=== PATIENT | male | born 1990 | race Caucasian/White ===

== ENCOUNTER 2018-09-25 15:41 | Emergency (ER) | payer OTHER, SELFPAY ==
[2018-09-25 15:49] VITALS: BP 156/83; PULSE 96; RESP 20; TEMP 36.8; O2SAT 98
--- NOTE | 2018-09-25 16:38 | W.ED.GENAD ---
Discharge Plan Disposition Patient Disposition: HOME Condition: Fair Discharge Details Chief Complaint: RashLesion Clinical Impression: Poison jessica dermatitis, Allergic reaction Primary Care Provider: Andrew Robb ED Provider: Nona Melara Home Meds and New Rx's Prescriptions: New prednisone 10 mg tablet 10 mg PO DAILY Qty: 37 RF: 0 tramadol 50 mg tablet 50 mg PO Q6H PRN (Reason: pain) Qty: 7 RF: 0 Discharge Instructions Instructions: Poison Jessica (ED), General Allergic Reaction (ED) Additional Instructions: Please keep areas clean and dry. You may address these as advised by nursing staff with a thick cream followed by wrapping, particularly when in shoes. Please take the prednisone as prescribed. Monitor wound for signs of infection including redness, warmth, drainage, increased pain, fever/chills. If these or other new/worsening symptoms arise please seek care urgently once again. Tylenol and ibuprofen as needed for discomfort. You may augment this with the tramadol as prescribed if this is insufficient. Please not drive while taking this medication. Follow-up with primary care next week for reevaluation Referrals: Andrew Robb [Primary Care Provider] - Discharge Data Discharge Date/Time-TO BE ENTERED AT DEPARTURE: 09/25/18 17:03 Medical Decision Making Patient is a 28-year-old male presents today with concern for blisters on bilateral feet. 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 Is followed by 3d specialist at [facility]. Reports that 2 weeks ago, he went to a wedding and wore shoes that he later determined to be a neoprene base without any socks. Since that time he has had progressively worsening symptoms that have resulted in circumferential rash around his feet that has since blistered. Patient also notes that he was exposed to poison jessica and has a rash to his arms, torso and legs. It does spare the genitals and face. No wheezing noted on exam. No signs of infection. Patient is ambulating with an antalgic gait secondary to the blistering on his feet. Skin on patient's feet has raw with sloughed off layer of skin consistent with the coming off of the blister she was describing. Plan to treat with prednisone. He has been on this for same historically with good result. Will give tramadol to help with nighttime discomfort. Patient I discussed wound care. These were addressed by nursing staff he is continues a sliding in and out of shoes. Does not appear infected at this point, he was given strict return precautions. He will f/u with PCP in one week. All of his questions and concerns were addressed, they are in agreement with this plan. HPI General Mode of arrival: ambulatory. Date/Time Provider Initiated Documentation: 09/25/18 16:28. Limitations to Documentation: no limitations. Information obtained by: patient and RN notes reviewed. History of Present Illness 28 year old M presents to the emergency department with the chief complaint of rash, described as severe, with intensity rated at 8. Quality is described as burning, and is localized to the lower extremity (primary complaint bilateral feet, also has diffuse poison jessica). Patient reports no radiation. Patient started experiencing this week(s) (2) and it has been constant (worsening). Immobilization improves symptom(s), Movement worsens symptoms . Patient notes no other symptoms. and rash; denies cough, fever/chills, nausea/vomiting and weakness. Patient did receive the following treatments prior to arrival, none Related Data Home Medications Medication Instructions Recorded Confirmed prednisone 10 mg PO DAILY #37 tab 09/25/18 tramadol 50 mg PO Q6H PRN #7 tab 09/25/18 Previous Rx's Medication Instructions Recorded prednisone 10 mg PO DAILY #37 tab 09/25/18 tramadol 50 mg PO Q6H PRN #7 tab 09/25/18 Allergies Allergy/AdvReac Type Severity Reaction Status Date / Time cephalexin [From Keflex] Allergy Skin Rash Unverified 09/25/18 15:52 neoprene Allergy Skin Rash Uncoded 09/25/18 15:52 General Stated Complaint: RashLesion MARCIN: 3 Review of Systems Constitutional Reports as per HPI, Denies chills, Denies fever(s), Denies headache(s) and Denies malaise ENT Denies headache(s) Respiratory Denies cough, Denies hemoptysis, Denies stridor and Denies wheezing Gastrointestinal Denies abdominal pain, Denies diarrhea, Denies nausea and Denies vomiting Musculoskeletal Reports as per HPI Integumentary/Breasts Reports as per HPI Neurologic Reports as per HPI, Denies headache(s), Denies sensory deficit and Denies paresthesias Allergic/Immunologic Denies wheezing [facility] Social History Smoking/Tobacco Use Status: Current every day Alcohol Intake: current Alcohol Intake frequency: 0-2 drinks per day Substance use type: does not use Do you feel safe at home: Yes Do you feel safe in your relationship?: Yes Exam Const General: cooperative, healthy appearing, comfortable, no acute distress and well developed Nutritional Appearance: average body habitus and well nourished Orientation: alert and awake [facility] [place] Head: normal to inspection Face and sinus: normal facial exam Mouth: oral mucosae normal, lip normal, tongue normal, oropharynx normal and moist mucous membranes Resp Effort & Inspection: normal respiratory effort, able to speak in complete sentences and no respiratory distress Auscultation: clear to auscultation bilaterally, no rales, no rhonchi and no wheezes Cardio Rate: regular rate Rhythm: regular rhythm Heart Sounds: S1 normal and S2 normal GI Inspection: other (rash as below) Skin General skin exam: other (patient has diffuse urticarial rash across anterior UE, BLE, abdomen) Rashes: rashes noted (blistering rash to bilateral feet circumfrential) Neuro General: alert and awake Cognition: normal cognition Speech: speech normal Gait: normal gait Sensory Exam: no sensory deficits noted Psych Appearance: grossly normal and well kempt Mental Status: mental status grossly normal Speech and Movement: speech and movement normal Course Vital Signs Temperature 36.8 C 09/25/18 15:49 Pulse 96 H 09/25/18 15:49 Respiratory Rate 20 09/25/18 15:49 Blood Pressure 156/83 H 09/25/18 15:49 Pulse Oximetry 98 09/25/18 15:49 Temperature 36.8 C 09/25/18 15:49 Temperature Source Temporal Artery Scan 09/25/18 15:49 Pulse 96 H 09/25/18 15:49 Respiratory Rate 20 09/25/18 15:49 Respiratory Effort Non-Labored 09/25/18 15:49 Blood Pressure 156/83 H 09/25/18 15:49 Blood Pressure Position Sitting 09/25/18 15:49 Pulse Oximetry 98 09/25/18 15:49 Oxygen Delivery Method Room Air 09/25/18 15:49 Oxygen Flow Rate 0 09/25/18 15:49 Pain Level 8 09/25/18 15:49
--- NOTE | 2018-09-25 16:41 | ED.GENADUL_ITS ---
Discharge Plan Disposition Patient Disposition: HOME Condition: Fair Discharge Details Chief Complaint: RashLesion Clinical Impression: Poison jessica dermatitis, Allergic reaction Primary Care Provider: Andrew Robb ED Provider: Nona Melara Home Meds and New Rx's Prescriptions: New prednisone 10 mg tablet 10 mg PO DAILY Qty: 37 RF: 0 tramadol 50 mg tablet 50 mg PO Q6H PRN (Reason: pain) Qty: 7 RF: 0 Discharge Instructions Instructions: Poison Jessica (ED), General Allergic Reaction (ED) Additional Instructions: Please keep areas clean and dry. You may address these as advised by nursing staff with a thick cream followed by wrapping, particularly when in shoes. Please take the prednisone as prescribed. Monitor wound for signs of infection including redness, warmth, drainage, increased pain, fever/chills. If these or other new/worsening symptoms arise please seek care urgently once again. Tylenol and ibuprofen as needed for discomfort. You may augment this with the tramadol as prescribed if this is insufficient. Please not drive while taking this medication. Follow-up with primary care next week for reevaluation Referrals: Andrew Robb [Primary Care Provider] - Discharge Data Discharge Date/Time-TO BE ENTERED AT DEPARTURE: 09/25/18 17:03 Medical Decision Making Patient is a 28-year-old male presents today with concern for blisters on bilateral feet. 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 Is followed by brand marketing specialist at [facility]. Reports that 2 weeks ago, he went to a wedding and wore shoes that he later determined to be a neoprene base without any socks. Since that time he has had progressively worsening symptoms that have resulted in circumferential rash around his feet that has since blistered. Patient also notes that he was exposed to poison jessica and has a rash to his arms, torso and legs. It does spare the genitals and face. No wheezing noted on exam. No signs of infection. Patient is ambulating with an antalgic gait secondary to the blistering on his feet. Skin on patient's feet has raw with sloughed off layer of skin consistent with the coming off of the blister she was describing. Plan to treat with prednisone. He has been on this for same historically with good result. Will give tramadol to help with nighttime discomfort. Patient I discussed wound care. These were addressed by nursing staff he is continues a sliding in and out of shoes. Does not appear infected at this point, he was given strict return precautions. He will f/u with PCP in one week. All of his questions and concerns were addressed, they are in agreement with this plan. HPI General Mode of arrival: ambulatory . Date/Time Provider Initiated Documentation: 09/25/18 16:28 . Limitations to Documentation: no limitations . Information obtained by: patient and RN notes reviewed . History of Present Illness 28 year old M presents to the emergency department with the chief complaint of rash, described as severe, with intensity rated at 8. Quality is described as burning, and is localized to the lower extremity (primary complaint bilateral feet, also has diffuse poison jessica). Patient reports no radiation. Patient started experiencing this week(s) (2) and it has been constant (worsening). Immobilization improves symptom(s), Movement worsens symptoms . Patient notes no other symptoms. and rash; denies cough, fever/chills, nausea/vomiting and weakness. Patient did receive the following treatments prior to arrival, none Related Data Home Medications Medication Instructions Recorded Confirmed prednisone 10 mg PO DAILY #37 tab 09/25/18 tramadol 50 mg PO Q6H PRN #7 tab 09/25/18 Previous Rx's Medication Instructions Recorded prednisone 10 mg PO DAILY #37 tab 09/25/18 tramadol 50 mg PO Q6H PRN #7 tab 09/25/18 Allergies Allergy/AdvReac Type Severity Reaction Status Date / Time cephalexin [From Keflex] Allergy Skin Rash Unverified 09/25/18 15:52 neoprene Allergy Skin Rash Uncoded 09/25/18 15:52 General Stated Complaint: RashLesion MARCIN: 3 Review of Systems Constitutional Reports as per HPI, Denies chills, Denies fever(s), Denies headache(s) and Denies malaise ENT Denies headache(s) Respiratory Denies cough, Denies hemoptysis, Denies stridor and Denies wheezing Gastrointestinal Denies abdominal pain, Denies diarrhea, Denies nausea and Denies vomiting Musculoskeletal Reports as per HPI Integumentary/Breasts Reports as per HPI Neurologic Reports as per HPI, Denies headache(s), Denies sensory deficit and Denies paresthesias Allergic/Immunologic Denies wheezing [facility] Social History Smoking/Tobacco Use Status: Current every day Alcohol Intake: current Alcohol Intake frequency: 0-2 drinks per day Substance use type: does not use Do you feel safe at home: Yes Do you feel safe in your relationship?: Yes Exam Const General: cooperative, healthy appearing, comfortable, no acute distress and well developed Nutritional Appearance: average body habitus and well nourished Orientation: alert and awake [facility] Head: normal to inspection Face and sinus: normal facial exam Mouth: oral mucosae normal, lip normal, tongue normal, oropharynx normal and moist mucous membranes Resp Effort & Inspection: normal respiratory effort, able to speak in complete sentences and no respiratory distress Auscultation: clear to auscultation bilaterally, no rales, no rhonchi and no wheezes Cardio Rate: regular rate Rhythm: regular rhythm Heart Sounds: S1 normal and S2 normal GI Inspection: other (rash as below) Skin General skin exam: other (patient has diffuse urticarial rash across anterior UE, BLE, abdomen) Rashes: rashes noted (blistering rash to bilateral feet circumfrential) Neuro General: alert and awake Cognition: normal cognition Speech: speech normal Gait: normal gait Sensory Exam: no sensory deficits noted Psych Appearance: grossly normal and well kempt Mental Status: mental status grossly normal Speech and Movement: speech and movement normal Course Vital Signs Temperature 36.8 C 09/25/18 15:49 Pulse 96 H 09/25/18 15:49 Respiratory Rate 20 09/25/18 15:49 Blood Pressure 156/83 H 09/25/18 15:49 Pulse Oximetry 98 09/25/18 15:49 Temperature 36.8 C 09/25/18 15:49 Temperature Source Temporal Artery Scan 09/25/18 15:49 Pulse 96 H 09/25/18 15:49 Respiratory Rate 20 09/25/18 15:49 Respiratory Effort Non-Labored 09/25/18 15:49 Blood Pressure 156/83 H 09/25/18 15:49 Blood Pressure Position Sitting 09/25/18 15:49 Pulse Oximetry 98 09/25/18 15:49 Oxygen Delivery Method Room Air 09/25/18 15:49 Oxygen Flow Rate 0 09/25/18 15:49 Pain Level 8 09/25/18 15:49
[2018-09-25] MEDS: Bacitracin 30 GM TUBE TP (18:12)
[2018-09-25 18:13] VITALS: BP 156/83; PULSE 96; TEMP 36.8; O2SAT 98
== END 2018-09-25 17:03 | disposition home or self-care (01) ==
PROVIDERS: Emergency Provider Physician Assistant; PCP Family Medicine Adult Medicine
DX: L25.5 Unspecified contact dermatitis due to plants, except food (principal)
CPT/HCPCS: 99283